=== PATIENT | female | born 1950 | race Caucasian/White ===

== ENCOUNTER 2018-08-24 00:55 | Observation (INO) | payer MEDICARE, OTHER ==
[2018-08-23 14:05] LABS: INR 0.96
--- NOTE | 2018-08-23 16:17 | RADIOLOGY IMAGING REPORT ---
FACILITY: [facility] - [place] PATIENT NAME: Heidi Grant : 1950 MR: [id number] V: [id number] EXAM DATE: ORDERING PHYSICIAN: IDALIA DEMARCO TECHNOLOGIST: Location[place] [facility] [place] Patient: Heidi Grant : 1950 Visit/Account:[id number] Date of Sevice: 08/20/2018 XR KNEES BILAT AP STANDING INDICATION: Preoperative evaluation for left knee arthroplasty. COMPARISON: None available. FINDINGS: Standing AP view of both legs. No evidence of acute fracture, dislocation, or radiopaque foreign body. Bilateral knee osteoarthritis. The right leg is slightly longer than the left. Degenerative changes in the included portion of the lumbar spine. IMPRESSION: No acute osseous abnormality of the legs. Report Dictated By: Javier Morfin MD at 08/23/2018 4:09 PM Report E-Signed By: Javier Morfin MD at 08/23/2018 4:13 PM [id number]
[~2018-08-24] VITALS: Ht 175.3 cm; Wt 81.6 kg
[2018-08-24] VITALS (11 sets, daily range): BP systolic 99–117; BP diastolic 54–87
[~2018-08-24 00:55] MED LIST: ACETAMINOPHEN 500 MG TAB PO ONE; ALBU8.5H IH; ASCO100T15 PO; BUDE10.25 IH; CALC200T27 PO; CELECOXIB 200 MG CAP PO ONE; CHLO-172 PO; CITA-145 PO; DICL100G39 ASDIRECTED; ESTR42.5 TOP; GLUC-125 PO; HYDR25TA66 PO; LOSA25TA57 PO; MAGN100T PO; MONT10TA PO; MULT1CAP59 PO; NAPR220C12 PO; OMEG-11 PO; PREGABALIN 150 MG CAPSULE PO ONE; RANI-366 PO; [UNRECOGNIZED DRUG - CODE] OP
[2018-08-24] MEDS ORDERED: MIDAZOLAM 2 MG/2 ML VIAL IVP PRN (09:15)
[2018-08-24] MEDS ORDERED: ceFAZolin(*) 2GM/D5W 50ML 50 ML IVPB ONE (09:15)
[2018-08-24] MEDS ORDERED: TRANEXAMIC AC 1000 MG/10ML SDV 1,000 MG in DEXTROSE 5% 50 ML BAG 50 ML IV ONE (09:15)
[2018-08-24] MEDS ORDERED: CELECOXIB 200 MG CAP PO ONE (09:15)
[2018-08-24] MEDS ORDERED: LIDOCAINE/SOD BICARB 8.4% SYR ID ONE (09:15)
[2018-08-24] MEDS ORDERED: FAMOTIDINE 20 MG TAB PO ONE (09:15)
[2018-08-24] MEDS ORDERED: ACETAMINOPHEN 500 MG TAB PO ONE (09:15)
[2018-08-24] MEDS ORDERED: NORMOSOL R SOLN(*) 1000 ML BAG 1,000 ML IV PRN (09:15)
[2018-08-24] MEDS ORDERED: ROPIVACAINE/EPI/CLONIDINE/KET 50 ML SYRINGE INJ ONE (09:15)
[2018-08-24] MEDS ORDERED: PREGABALIN 150 MG CAPSULE PO ONE (09:15)
[2018-08-24] MEDS ORDERED: ONDANSETRON 4 MG/2 ML VIAL ONE (14:11)
[2018-08-24] MEDS ORDERED: PROPOFOL EMUL(*) 10MG/ML 20 ML 20 ML ONE (14:11)
[2018-08-24] MEDS ORDERED: fentaNYL CITR 100 MCG/2 ML AMP ONE ×3 (14:11→18:30)
[2018-08-24] MEDS ORDERED: LIDOCAINE MPF 1% 5 ML VIAL ONE (14:11)
[2018-08-24] MEDS ORDERED: VANCOMYCIN(*) 1 GM VIAL 1.25 GM in NS(*) 0.9% 250 ML BAG 250 ML IVPB ONE (14:50)
[2018-08-24] MEDS ORDERED: NALOXONE HCL 0.4 MG/ML VIAL IVP PRN (18:35)
[2018-08-24] MEDS ORDERED: FLUSH 10 ML SYR IVP PRN (18:35)
[2018-08-24] MEDS ORDERED: ONDANSETRON 4 MG/2 ML VIAL IVP PRN (18:35)
[2018-08-24] MEDS ORDERED: PROMETHAZINE 25 MG/ML 1 ML AMP IVP PRN (18:35)
[2018-08-24] MEDS ORDERED: MAGNESIUM CITRATE 300 ML BTL PO PRN (18:35)
[2018-08-24] MEDS ORDERED: diphenhydrAMINE 25 MG CAP PO PRN (18:35)
[2018-08-24] MEDS ORDERED: KCL/D5LR 20 MEQ/1000 ML PREMIX 1,000 ML IV PRN (18:35)
[2018-08-24] MEDS ORDERED: MORPHINE SULFATE 30 MG PCA IV PRN (18:35)
[2018-08-24] MEDS ORDERED: ACETAMINOPHEN 500 MG TAB PO PRN (18:35)
--- NOTE | 2018-08-24 19:01 | RADIOLOGY IMAGING REPORT ---
[facility] PATIENT NAME: Heidi Grant : 1950 MR: [id number] V: [id number] EXAM DATE: ORDERING PHYSICIAN: IDALIA DEMARCO TECHNOLOGIST: Location: [facility] Patient: Heidi Grant : 1950 Visit/Account:[id number] Date of Sevice: 08/24/2018 EXAMINATION: Left knee radiographs 2 views HISTORY: Status post left total knee arthroplasty. COMPARISON: 08/23/2018. FINDINGS: AP and lateral views of the left knee are obtained. Bones: Status post left knee arthroplasty. Otherwise unremarkable Joint spaces: Status post left knee arthroplasty. Hardware: Left knee arthroplasty hardware. Alignment: Normal. Soft tissues: Air in the soft tissues about the left knee and within the left knee joint capsule. IMPRESSION: Expected postoperative changes of left knee arthroplasty. Report Dictated By: Osmar Price MD at 08/24/2018 6:53 PM Report E-Signed By: Osmar Price MD at 08/24/2018 6:56 PM WSN:[id number]
--- NOTE | 2018-08-24 20:50 | Hospitalist Consultation ---
History of Present Illness Requesting Physician Dr. Pike Reason for Consult Hypertension History of Present Illness This patient was admitted for knee replacement surgery. It is reported that the surgery went well and was without complication. History Problems: (1) Essential hypertension (2) Asthma Home Meds Reported Medications Budesonide/Formoterol Fumarate (SYMBICORT 80-4.5 MCG INHALER) 10.2 Gm Hfa.aer.ad, 2 PUFF IH BID 08/20/18 Albuterol Sulfate 90 Mcg/Act (PROAIR HFA 90 MCG/ACT) 8.5 Gm Hfa.aer.ad, 1-2 PUFF IH PRN, INHALER 08/20/18 Diclofenac Sodium 1% Gel (VOLTAREN 1% GEL) 100 Gm Gel..gram., 1 TRE ASDIRECTED 08/20/18 Glycerin/Propylene Glycol (ADVANCED EYE RELIEF DRY EYE DP) 30 Ml Drops, 30 ML OP QDAY 08/20/18 Naproxen Sodium (ALEVE) 220 Mg Capsule, 220 MG PO BID PRN for PAIN, CAPSULE 08/20/18 Ranitidine Hcl (ZANTAC) 150 Mg Tablet, 75 MG PO QDAY, TAB 08/20/18 Chlorpheniramine Maleate (CHLORPHENIRAMINE MALEATE) 4 Mg Tablet, 4 MG PO PRN 08/20/18 Estrogens, Conjugated (Premarin) 0.625 Mg/Gram Cream.appl, 2 G TOP PRN 08/20/18 Losartan Potassium (LOSARTAN POTASSIUM) 25 Mg Tablet, 25 MG PO QDAY 08/20/18 Citalopram Hydrobromide (CITALOPRAM HBR) 20 Mg Tablet, 30 MG PO QDAY, #5 TAB 08/20/18 Montelukast Sodium (SINGULAIR) 10 Mg Tablet, 1 TAB PO QDAY, TAB 08/20/18 Hydralazine Hcl (HYDRALAZINE HCL) 25 Mg Tablet, 25 MG PO PRN PRN for ANXIETY, TAB 08/20/18 Calcium Citrate (CALCIUM CITRATE) 200 Mg Tablet, 200 MG PO QDAY 08/20/18 Ascorbic Acid (VITAMIN C) 100 Mg Tablet, 100 MG PO QDAY 08/20/18 Magnesium Amino Acid Chelate (MAGNESIUM) 100 Mg Tablet, 100 MG PO QDAY 08/20/18 Norphlet-3 Fatty Acids/Fish Oil (FISH OIL 1,000 MG CAPSULE) 1 Each Capsule, 1 EACH PO QDAY, CAPSULE 08/20/18 Multivitamin (MULTIVITAMINS) 1 Each Capsule, 1 EACH PO QDAY, CAPSULE 08/20/18 Gluc/Humphrey-Msm#2/C/D3/Willy/Born (OMGXZAPFMS-HGGVYINFTES-OKU TAB) 1 Each Tablet, 1 EACH PO QDAY 08/20/18 Allergies: Coded Allergies: latex (Verified Allergy, Severe, 08/20/18) povidone-iodine (Verified Allergy, Severe, 08/20/18) soap (Verified Allergy, Severe, 08/20/18) bacitracin (Verified Allergy, Intermediate, RASH , 08/20/18) OKAY WITH POLYSPORIN neomycin (Verified Allergy, Intermediate, RASH , 08/20/18) OKAY WITH POLYSPORIN polymyxin B (Verified Allergy, Intermediate, RASH , 08/20/18) OKAY WITH POLYSPORIN levofloxacin (Verified Allergy, Unknown, 08/20/18) "DOES NOT REMEMBER REACTION" WAS TOLD NOT TO TAKE prednisone (Verified Allergy, Unknown, 08/20/18) UNKNOWN WAS TOLD NOT TO TAKE WITH LEVOQUIN azithromycin (Verified Adverse Reaction, Intermediate, GI UPSET, 08/20/18) Hx Smoking: Yes (SMOKED FOR 10 YRS X 1PPD) Caffeine/Cups Per Day: ALL DAY Hx Alcohol Use: Yes (1-2 EVERY OTHER DAY) Alcohol Used: Wine Hx Substance Use Disorder: No Review of Systems All Systems Reviewed/Normal: Yes Exam Vital Signs Vital Signs Date Time Temp Pulse Resp B/P (MAP) Pulse Ox O2 Delivery O2 Flow Rate FiO2 08/24/18 19:30 67 16 95 08/24/18 19:30 98.3 117/87 (97) Nasal Cannula 2.0 Neuro: No Gross deficits Eyes: PERRLA Cardiovascular: Regular Rate and Rhythm Respiratory: Clear to Auscultation GI: Abd Soft and Non-Tender Extremities: No Edema Integumentary: No Cyanosis Medical Decision Making Data Points Result Diagram: 08/24/181819 Assessment and Plan Problems: (1) S/P knee replacement Assessment & Plan: She is on aspirin prophylaxis. (2) Essential hypertension Assessment & Plan: She is on chronic treatment with losartan, which has been ordered with hold parameters. (3) Asthma Assessment & Plan: She is on chronic treatment with inhalers. Venous Thromboembolism Antithrombotics Is Pt On Any Antithrombotics?: No RONEN VANEGAS DO Aug 24, 2018 20:49
--- NOTE | 2018-08-24 20:51 | OPERATIVE REPORT 1 ---
EVENT DATE: August 24, 2018 SURGEON: González Pike MD ANESTHESIOLOGIST: Manfred Mojica MD ANESTHESIA: General plus spinal. MANAGER TRADING: Ananth Amos PA-C PREOPERATIVE DIAGNOSES 1. Bilateral knee degenerative joint disease, left worse than right. 2. Bilateral valgus knees. POSTOPERATIVE DIAGNOSES 1. Bilateral knee degenerative joint disease, left worse than right. 2. Bilateral valgus knees. PROCEDURE PERFORMED Left total knee arthroplasty (68833). ESTIMATED BLOOD LOSS 50. INTRAVENOUS FLUIDS Crystalloid 1500, no colloid. TOURNIQUET TIME 62. SPECIMENS No specimens. COMPLICATIONS No complications. IMPLANTS USED [employer] 6 PS femur cut at 5-degree angle, removing 9 mm off the end of the femur, with a 5 RP tibia, a 35 anatomic patella, and a 6 x 6 RP insert. SUMMARY OF PROCEDURE The patient was brought into the operating room. She was given a spinal and then a general anesthetic. Her left lower extremity was prepped and draped in the usual sterile fashion. The limb was exsanguinated, and the tourniquet was inflated. An anterior utilitarian incision was made, followed by a medial parapatellar approach. The fluid was clear. We resected some of the fat pad and everted the patella, resecting the patellofemoral ligament where it was necessary. The menisci were removed, as was the ACL. The knee had an unusual pattern of anatomic shape because the anterior wall of the femur did not have any rise whatsoever. It just went straight into the condyle and then down, which made it a little bit unusual when we made our cuts. We had done long plate films and measured a 5-degree angle for the cut, so we initially started our central drill hole and then cut at 5 degrees, removing 9 mm off the end of the femur. She did not have an extensively hypoplastic lateral femoral condyle despite having a valgus knee. Her size was slightly greater than 6, and we trialed it with a 6. Using the cutting guide, that would be a flush cut with the anterior femur, so we went with that. After resecting the tissues, removed osteophytes, and then trialed it, it looked like the lateral side still needed a little bit more when we used the brass knuckles trial, and so I removed a little bit more and then did the actual trial, which fit nicely. The notch was cut for the posterior stabilized element, and then we did the final for drilling the lug holes. This was then removed, and we went with the tibia. We made sure that all the PCL was resected away from the femur where necessary and that way had removed the soft tissues. We left the popliteus for the time being. We then went ahead with the tibial cut. Here, the initial measurement was taken 2 mm below the deficient lateral side, but that was really only cutting about the same amount off the medial side, so that would not work. We ended up splitting the difference between the 9 and the 2 with about a 5, and that looked like it would probably cut a reasonable amount. This cut was made after doing the long sabrina to confirm alignment. The tibia was cut with an IM guide just like the femur. It sized best with a 5. An RP was to be used, so we placed it in its normal position matching the curvature exactly. This was then cut for the stem, and then we trialed. It actually had very good extension with the 5. It was perhaps slightly hyperextended, but not by much. The stability was fairly symmetric. The patella looked like it would be about a 35. We measured at 23 and cut a little less than 10 off, leaving her with 14, and then placed a 35 anatomic, which was 9.5 thick. This was drilled, and then we trialed one last time. It seemed like it stayed in the groove very nicely despite her tendency for lateral subluxation preop. We removed the trials. Irrisept was used, as was a local anesthetic in the deep capsule. We mixed cement while placing bone blocks both for the tibia and the femur. We then cemented the implants, starting with the tibia and moving to the femur and then the patella. We held it locked and loaded until full polymerization, having removed excess cement. We then trialed with a 5 and then a 6. It looked like the 6 would be best, so we did a final 6 insert. We put additional Irrisept in and then let the tourniquet down. Additional tranexamic acid had been given for a total of two doses. There was only minimal bleeding. After controlling what bleeding there was with unipolar cautery, closure was with #1 Vicryl, followed by 3-0 Vicryl, and then 4-0 Monocryl, with a Prineo strip applied. MTDD
[2018-08-24] MEDS: BUDESO/FORMOT 80/4.5 MCG 6.9GM INH SCH (21:52)
[2018-08-25] VITALS (14 sets, daily range): BP systolic 78–148; BP diastolic 48–88; Ht 175.3 cm; Wt 81.6 kg
[2018-08-25] MEDS: BUDESO/FORMOT 80/4.5 MCG 6.9GM INH SCH ×2 (05:17→17:11)
[2018-08-25 06:34] LABS: PLATELET COUNT, AUTOMATED 173 K/uL (150-450)
[2018-08-25] MEDS: MONTELUKAST SODIUM 10 MG TAB PO SCH (08:50)
[2018-08-25] MEDS: ASPIRIN 325 MG ENTERIC COATED PO SCH (08:50)
[2018-08-25] MEDS: LOSARTAN POTASSIUM 50 MG TAB PO SCH (09:00)
[2018-08-25] MEDS ORDERED: CITALOPRAM HYDROBROM 20 MG TAB PO SCH (09:00)
[2018-08-25] MEDS ORDERED: RANITIDINE HCL 150 MG TAB PO SCH (09:00)
--- NOTE | 2018-08-25 10:46 | NUR ---
Physical Therapy Impression Pt. eval complete. Pt. amb 20', SBA, FWW with one seated break. O2 remained in high 80's and low 90's on RA. Pt. completed ther ex. Pt. left seated in chair, she will continue to use CPM throughout the day. Rec d/c to home with once goals are met. Physical Therapy Goals 1. Pt. to ambulate 50', SBA/CGA with least restrictive AD. 2. Pt. to ascend/descend 3 stairs with railing, CGA. 3. Pt. to perform bed mobility with Leroy, CGA. Patient's Goals
--- NOTE | 2018-08-25 13:07 | Hospitalist Progress Note ---
Subjective Progress Notes Subjective 67F admitted for TKA. ABISAI overnight, increased pain this am. Patient Complains of: Gastrointestinal: No Nausea, No Vomiting Physical Exam Vital Signs Date Time Temp Pulse Resp B/P (MAP) Pulse Ox O2 Delivery O2 Flow Rate FiO2 08/25/18 11:24 64 16 96/62 (73) 92 Room Air 08/25/18 07:30 1.5 08/25/18 06:45 98.6 Intake and Output 08/25/18 06:59 Intake Total 1900 ml Balance 1900 ml Intake Oral 300 ml IV Total 1600 ml # Voids 2 General Appearance: Alert, Awake, No Acute Distress Neuro: No Gross deficits ENT: Normal Cardiovascular: Normal Rhythm & Peripheral Pulses Respiratory: No Respiratory Distress Result Diagram: 08/25/18 0535 Assessment and Plan Problems: (1) S/P knee replacement Assessment & Plan: She is on aspirin prophylaxis. (2) Essential hypertension Assessment & Plan: She is on chronic treatment with losartan, which has been ordered with hold parameters. (3) Asthma Assessment & Plan: She is on chronic treatment with inhalers. Exam Sepsis Risk: No Definite Risk KATHI PEREZ DO Aug 25, 2018 13:07
[2018-08-25] MEDS ORDERED: KETOROLAC 15 MG/ML VIAL IVP ONE (14:00)
[2018-08-25] MEDS ORDERED: LORazepam 2 MG/ML VIAL IVP ONE ×2 (14:05→16:50)
--- NOTE | 2018-08-25 14:59 | NUR ---
Notified Pt was crying and having increased pain. Upon assessment, found that pt was having pain in knee and lungs and stated having previous anxiety attack. Pt appeared restless and anxious. Coached pt through deep breathing and relaxation techniques, paused CPM device. at bedside. Notified Orthopedic Surgeon of pain and hospitalist of anxiety. Orders recieved for toradol and ativan. Medications given as ordered. pt switched to oximask and earlobe oxygen sensor to decrease anxiety related to monitor sounds. Pt began calming down. CPM device adjusted by PT. Room lights darkened and pt continued to calm down.
--- NOTE | 2018-08-25 15:03 | NUR ---
Physical Therapy Impression Pt. limited at this time due to increased pain. Nursing staff aware and giving pt medication. CPM set at 0-40 deg flexion, pt reports pain at end ranges. Adjustment of CPM under thigh relieved somewhat. Physical Therapy Goals 1. Pt. to ambulate 50', SBA/CGA with least restrictive AD. 2. Pt. to ascend/descend 3 stairs with railing, CGA. 3. Pt. to perform bed mobility with Leroy, CGA. Patient's Goals
[2018-08-25] MEDS ORDERED: oxyCODONE HCL 5 MG CAP PO PRN (17:15)
--- NOTE | 2018-08-25 19:41 | NUR ---
begining around 1620- pt notified RN that anxiety was returning. Pt appeared anxious, speech was erratic and difficult to follow. Able to answer orientation questions correctly. Pt assessed for stroke risk, pupils noted to be constricted and pt having difficulty finding words. Physician called and other RNs assisted in pt assessment. physician ordered 1mg ativan which was given IV as ordered. RN stayed with patient until pt appeared to be more calm and stable. As pt became more lethargic, vital signs stablized but respirations continued to decrease to 8 and pt would desat when falling asleep. Narcan 0.1 mg given IV as ordered. Vital signs stabilized and pt mentation improved. Report given to NOC RN. Dr. Tolentino Notified.
[2018-08-25] MEDS: RANITIDINE HCL 150 MG TAB PO SCH (20:40)
[2018-08-25] MEDS: CITALOPRAM HYDROBROM 20 MG TAB PO SCH (20:40)
[2018-08-25] MEDS: ACETAMINOPHEN 500 MG TAB PO PRN (20:41)
[2018-08-25] MEDS: oxyCODONE HCL 5 MG CAP PO PRN (22:08)
[2018-08-26] VITALS (7 sets, daily range): BP systolic 112–148; BP diastolic 70–90
[2018-08-26] MEDS: KETOROLAC 15 MG/ML VIAL IVP PRN ×2 (00:27→06:52)
[2018-08-26] MEDS: oxyCODONE HCL 5 MG CAP PO PRN ×3 (04:14→21:30)
[2018-08-26] MEDS: BUDESO/FORMOT 80/4.5 MCG 6.9GM INH SCH ×2 (05:06→17:22)
[2018-08-26 05:38] LABS: PLATELET COUNT, AUTOMATED 176 K/uL (150-450)
[2018-08-26] MEDS: MONTELUKAST SODIUM 10 MG TAB PO SCH (08:54)
[2018-08-26] MEDS: ASPIRIN 325 MG ENTERIC COATED PO SCH (08:54)
[2018-08-26] MEDS: LOSARTAN POTASSIUM 50 MG TAB PO SCH (08:54)
--- NOTE | 2018-08-26 09:41 | NUR ---
Physical Therapy Impression Pt. with decreased pain and decreased anxiety today. Pt. amb 2x20' with RW, SBA, 3L O2 to maintain O2 >90%. Pt. demonstrates steady and slow gait. Rec OP rehab upon return to hometown of [place]. Physical Therapy Goals 1. Pt. to ambulate 50', SBA/CGA with least restrictive AD. 2. Pt. to ascend/descend 3 stairs with railing, CGA. 3. Pt. to perform bed mobility with Leroy, CGA. Patient's Goals
[2018-08-26] MEDS ORDERED: CELECOXIB 200 MG CAP PO PRN (11:25)
--- NOTE | 2018-08-26 11:29 | Hospitalist Progress Note ---
Subjective Progress Notes Subjective Yesterday evening the patient had an episode of acute anxiety, tachypnea and difficulty expressing herself. She was given Ativan. She developed some respiratory suppression, so was given Narcan and then felt much better. She believes that she had a panic attack related to the severity of the pain. OxyContin was stopped, Toradol started and Percocet was split up to APAP and oxycodone. Feeling much better this morning and did well last night. Physical Exam Vital Signs Date Time Temp Pulse Resp B/P (MAP) Pulse Ox O2 Delivery O2 Flow Rate FiO2 08/26/18 08:56 125/71 (89) 08/26/18 07:49 Oxy Mask 3.0 08/26/18 07:43 98.6 77 16 93 Intake and Output 08/26/18 07:00 Intake Total 240 ml Balance 240 ml Intake Oral 240 ml # Voids 1 General Appearance: Alert, Awake, No Acute Distress Cardiovascular: Regular Rate and Rhythm Respiratory: Clear to Auscultation Result Diagram: 08/26/18 0531 08/26/18 0531 Assessment and Plan Problems: (1) S/P knee replacement Assessment & Plan: She is on aspirin prophylaxis. (2) Altered mental status Status: Acute Assessment & Plan: Likely secondary to a panic attack and exacerbated by the cognitive inhibiting affects of narcotics. OxyContin stopped. Now on oxycodone, Celebrex and APAP. Doing much better. (3) Asthma Assessment & Plan: She is on chronic treatment with inhalers. (4) Essential hypertension Assessment & Plan: She is on chronic treatment with losartan, which has been ordered with hold parameters. Exam Sepsis Risk: No Definite Risk DELGADO CESAR MD Aug 26, 2018 11:29
[2018-08-26] MEDS ORDERED: ALBUTEROL 8 GM INHALER INH ONE (14:00)
[2018-08-26] MEDS: ACETAMINOPHEN 500 MG TAB PO PRN ×2 (16:00→22:54)
[2018-08-26] MEDS ORDERED: ACET500T68 PO (16:17)
[2018-08-26] MEDS ORDERED: DIPH-464 PO (16:17)
[2018-08-26] MEDS ORDERED: RANI75TA51 PO (16:17)
[2018-08-26] MEDS ORDERED: HYDR30CR TOP (16:17)
[2018-08-26] MEDS ORDERED: CALC1TAB87 PO (16:17)
[2018-08-26] MEDS ORDERED: TROL85CR TP (16:17)
--- NOTE | 2018-08-26 19:53 | NUR ---
Notified by Pt that pt began feeling anxious and painful just prior to [address] pierre was in room. Given OxyIR after discussion with MD and pt stated need to use ventolin inhaler in patient room prior to symbacort inhaler. Pt began getting anxious about situation. Asked Dr. Pierre if it was ok for pt to use own ventolin to reduce anxiety. MD okayed. Pt Used and RT administered symbacort. Pt anxiety continued. Pt coached in deep breathing and played relaxing music. Pt stated that anxiety has increased before hospitalization following dose of ventolin. Discussed possibility of ventolin increasing anxiety and advised pt to refrain from any further use of ventolin until instructed by MD. Pt continued with anxiety until end of shift but could be managed with relaxation techniques.
[2018-08-26] MEDS: CITALOPRAM HYDROBROM 20 MG TAB PO SCH (20:37)
[2018-08-26] MEDS: RANITIDINE HCL 150 MG TAB PO SCH (20:37)
[2018-08-27] MEDS: oxyCODONE HCL 5 MG CAP PO PRN ×3 (03:08→13:30)
[2018-08-27 03:09] VITALS: BP 130/70
[2018-08-27] MEDS: BUDESO/FORMOT 80/4.5 MCG 6.9GM INH SCH (05:55)
[2018-08-27 05:59] LABS: PLATELET COUNT, AUTOMATED 150 K/uL (150-450)
[2018-08-27 07:12] VITALS: BP 101/69
[2018-08-27] MEDS: LOSARTAN POTASSIUM 50 MG TAB PO SCH (08:32)
[2018-08-27] MEDS: ASPIRIN 325 MG ENTERIC COATED PO SCH (08:32)
[2018-08-27] MEDS: MONTELUKAST SODIUM 10 MG TAB PO SCH (08:32)
[2018-08-27] MEDS: ACETAMINOPHEN 500 MG TAB PO PRN (08:32)
[2018-08-27] MEDS ORDERED: ASPI-764 PO (10:20)
--- NOTE | 2018-08-27 10:22 | Hospitalist Progress Note ---
Subjective Progress Notes Subjective She was admitted s/p knee replacement. She has no complaints this morning. She had no acute events overnight. Patient Complains of: Cardiovascular: No: Chest Pain Respiratory: No: Shortness of Breath Physical Exam Vital Signs Date Time Temp Pulse Resp B/P (MAP) Pulse Ox O2 Delivery O2 Flow Rate FiO2 08/27/18 07:12 98.0 76 18 101/69 (80) 93 Nasal Cannula 3.0 Intake and Output 08/27/18 07:00 Intake Total 1080 ml Balance 1080 ml Intake Oral 1080 ml # Voids 6 General Appearance: Alert, Awake, No Acute Distress, Afebrile Neuro: No Gross deficits Cardiovascular: Regular Rate and Rhythm Respiratory: No Respiratory Distress, Clear to Auscultation GI: Soft and Non-Tender Psych: Alert & Oriented X3, Appropriate Mood & Affect Result Diagram: 08/27/18 0547 08/26/18 0531 Assessment and Plan Problems: (1) S/P knee replacement Assessment & Plan: She is on aspirin prophylaxis. (2) Altered mental status Status: Acute Assessment & Plan: Likely secondary to a panic attack and exacerbated by the cognitive inhibiting affects of narcotics. OxyContin stopped. Now on oxycodone, Celebrex and APAP. Doing much better. (3) Asthma Assessment & Plan: She is on chronic treatment with inhalers. (4) Essential hypertension Assessment & Plan: She is on chronic treatment with losartan, which has been ordered with hold parameters. Exam Sepsis Risk: No Definite Risk HUNTER GARZA Aug 27, 2018 10:22
[2018-08-27] MEDS ORDERED: DOCUSATE SODIUM 100 MG CAP PO SCH (10:50)
[2018-08-27] MEDS ORDERED: BISACODYL 10 MG SUPP PR PRN (10:50)
[2018-08-27] MEDS ORDERED: POLYETHYLENE GLYCOL 17 GM PKT PO SCH (10:50)
[2018-08-27] MEDS ORDERED: MAGNESIUM HYDROXIDE* 30ML UDCP PO PRN (10:50)
--- NOTE | 2018-08-27 11:14 | NUR ---
Physical Therapy Impression Pt is safe to DC when medically appropriate. Physical Therapy Goals 1. Pt. to ambulate 50', SBA/CGA with least restrictive AD. 2. Pt. to ascend/descend 3 stairs with railing, CGA. 3. Pt. to perform bed mobility with Leroy, CGA. Patient's Goals
[2018-08-27] MEDS ORDERED: OXYC-823 PO (11:21)
[2018-08-27] MEDS ORDERED: OXYC5CAP21 PO (11:26)
== END 2018-08-27 11:13 | disposition home or self-care (01) ==
LOC: OR 00:55 → MED 19:30
PROVIDERS: ADMIT Orthopaedic Surgery Hand Surgery; ATTEND Orthopaedic Surgery Hand Surgery
DX: M17.0 Bilateral primary osteoarthritis of knee (principal); M21.062 Valgus deformity, not elsewhere classified, left knee; M21.061 Valgus deformity, not elsewhere classified, right knee; J45.909 Unspecified asthma, uncomplicated; I10 Essential (primary) hypertension; G47.30 Sleep apnea, unspecified; R41.82 Altered mental status, unspecified; R06.82 Tachypnea, not elsewhere classified
CPT/HCPCS: 27447; 36415; 73560; 77073; 85014; 85018; 85025; 85610; 86850; 86900; 86901; 94640; 97110; 97116; 97161; 97530; A9270; C1713; C1776; G0378; J1885; J2001; J2060; J2250; J2310; J2405; J2704; J3010; J3370; J7050; J7060; 82040; 82247; 82310; 82374; 82435; 82565; 82947; 84075; 84132; 84155; 84295; 84450; 84460; 84520